=== PATIENT | female | born 1970 | race African-American/Black ===

== ENCOUNTER 2016-11-04 17:55 | Emergency (ER) | payer OTHER ==
[~2016-11-04] VITALS: Ht 172.7 cm; Wt 109.3 kg
[2016-11-04] MEDS ORDERED: FERR325C PO (18:00)
[2016-11-04] MEDS ORDERED: LABE300T PO (18:00)
[2016-11-04] MEDS ORDERED: AMLO10TA2 PO (18:00)
[2016-11-04 19:41] LABS: POTASSIUM ISTAT 3.3 mmol/L (3.5-5.0)
[2016-11-04] MEDS ORDERED: MEDR5TAB PO (20:07)
[2016-11-04] MEDS ORDERED: DOXY50CA PO (20:07)
--- NOTE | 2016-11-04 20:08 | PHYS DOC ---
Past Medical History Past Medical History: Hypertension, Renal Failure, Other Additional Past Medical Histor: OBESITY, PRE-ECLAMPSIA, SCOLIOSIS Past Surgical History: , Tubal ligation Additional Past Surgical Histo: X 4, I&D AXILLA Alcohol Use: None Drug Use: None Adult General Chief Complaint Chief Complaint: VAGINAL BLEEDING HPI HPI Patient is a 46 year old female who presents with 2 weeks of vaginal bleeding, sometimes scant and sometimes heavy with clots; states she has recent fatigue and lightheadedness. States she has had this issue of heavy bleeding in the past , had progesterone shot which improved her symptoms. She would like to progesterone to help with these symptoms. She usually has regular menses, but her last menstrual cycle was 3 months ago. She also notes right axillary swelling and pain with purulent drainage today. States she has a problem with abscesses in her axilla as well as her leg in the past. She denies injury, fever or chills, abdominal pain, diarrhea, dysuria, hematuria, back pain. Review of Systems Review of Systems Constitutional: Denies fever or chills [] Eyes: Denies change in visual acuity, redness, or eye pain [] HENT: Denies nasal congestion or sore throat [] Respiratory: Denies cough or shortness of breath [] Cardiovascular: No additional information not addressed in HPI [] GI: Denies abdominal pain, nausea, vomiting, bloody stools or diarrhea [] : Denies dysuria or hematuria [] Musculoskeletal: Denies back pain or joint pain [] Integument: Denies rash [] Neurologic: Denies headache, focal weakness or sensory changes [] Endocrine: Denies polyuria or polydipsia [] Allergies Allergies Allergies Coded Allergies Type Severity Reaction Last Updated Verified amoxicillin Allergy Severe "MY HEART FLUCTUATES" 11/04/16 Yes Physical Exam Physical Exam Constitutional: Well developed, well nourished, no acute distress, non-toxic appearance. [] HENT: Normocephalic, atraumatic, bilateral external ears normal, oropharynx moist, nose normal. [] Eyes: PERRLA, EOMI. [] Neck: Normal range of motion, supple. [] Cardiovascular:Heart rate regular rhythm [] Lungs & Thorax: Bilateral breath sounds clear to auscultation [] Abdomen: Bowel sounds normal, soft, no tenderness. [] Skin: Warm, dry, no erythema, no rash. [] Back: No tenderness, no CVA tenderness. [] Extremities: ROM intact. Right lower with small area of induration and tenderness with central opening with minimal purulent drainage expressible, no surrounding discoloration fluctuance. [] Neurologic: Alert and oriented X 3, normal motor function, normal sensory function, no focal deficits noted. [] Psychologic: Affect normal, judgement normal, mood normal. [] Current Patient Data Vital Signs Vital Signs Date Time Temp Pulse Resp B/P Pulse Ox O2 Delivery O2 Flow Rate FiO2 11/04/16 20:11 97 16 116/64 97 Room Air 11/04/16 18:00 98.2 98.2 Lab Values Laboratory Tests Test 11/04/16 19:02 11/04/16 19:34 POC Urine HCG, Qualitative Hcg negative (Negative) POC Hemoglobin 9.2g/dL (12-15) L POC Hematocrit 27% (36-40) L POC Sodium 136mmol/L (135-145) POC Potassium 3.3mmol/L (3.5-5.0) L POC Chloride 97mmol/L (98-110) L POC Total CO2 23mmol/L (23-32) Anion Gap 20mmol/L (6-14) H POC Blood Urea Nitrogen 12mg/dL (8-26) POC Creatinine 1.6mg/dL (0.5-1.4) H Glucose Level 112mg/dL (70-99) H POC Ionized Calcium (Sancho) 1.14mmol/L (1.13-1.32) Laboratory Tests 11/04/16 19:34 Course & Med Decision Making Course & Med Decision Making Pertinent Labs and Imaging studies reviewed. (See chart for details) Laboratory evaluation is unremarkable other than mild anemia. Encouraged her to follow-up with a automatic splicing machine operator as well as her primary care doctor for further management of these conditions. Will place on Provera for a few days to help suppress bleeding. Return precautions given. She understands and agrees plan. Dragon Disclaimer Dragon Disclaimer This electronic medical record was generated, in whole or in part, using a voice recognition dictation system. Departure Departure Impression: Primary Impression: Abnormal uterine bleeding Additional Impression: Axillary abscess Disposition: HOME, SELF-CARE Condition: STABLE Referrals: SUELLEN ADAMS MD Patient Instructions: Abnormal Uterine Bleeding Additional Instructions: Take provera as prescribed for abnormal uterine bleeding. Take doxycycline as prescribed for axillary abscess. Follow-up with your primary care doctor and your automatic splicing machine operator within one week. Please call for appointments. Return for any concerns. Scripts Medroxyprogesterone Acetate (Provera)5 Mg Tablet1 Tab PO DAILY #5 TAB Ref 0 Prov:Torie FONTENOT MD 11/04/16 Doxycycline Hyclate 50 Mg Capsule1 Cap PO BID #20 CAP Prov:Torie FONTENOT MD 11/04/16 Problem Qualifiers Torie FONTENOT MD Nov 04, 2016 20:08
[2016-11-04 20:11] VITALS: BP 116/64
== END 2016-11-04 20:11 | disposition home or self-care (01) ==
LOC: ER 17:55
DX: N93.9 Abnormal uterine and vaginal bleeding, unspecified (principal); L02.411 Cutaneous abscess of right axilla; N18.9 Chronic kidney disease, unspecified; I12.9 Hypertensive chronic kidney disease with stage 1 through stage 4 chronic kidney disease, or unspecified chronic kidney disease; D64.9 Anemia, unspecified; M41.9 Scoliosis, unspecified; E66.9 Obesity, unspecified; Z68.36 Body mass index [BMI] 36.0-36.9, adult; Z88.0 Allergy status to penicillin
CPT/HCPCS: 80047; 81025; 84703; 99283

== ENCOUNTER 2018-02-25 12:14 | Emergency (ER) | payer OTHER ==
[~2018-02-25] VITALS: Ht 172.7 cm; Wt 161.9 kg
[~2018-02-25 12:14] MED LIST: AMLO10TA2 PO; DOXY50CA PO; FERR325C PO; LABE300T2 PO; MEDR5TAB PO
[2018-02-25 12:25] VITALS: BP 174/92
--- NOTE | 2018-02-25 12:53 | RAD ---
History: Twisted right knee several days earlier. Comparison: None. Findings: AP, lateral, and oblique views of the right knee. No acute fracture or dislocation is identified. Small joint effusion is suspected. Moderate medial compartment degeneration is seen with marginal osteophyte formation and partial loss of joint space. Mild-moderate lateral and patellofemoral compartment degeneration is seen. Degeneration thought advanced for patient's age. Impression: 1. No acute osseous traumatic injury identified. 2. Suspect joint effusion. 3. 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 Electronically signed by: Anurag Hill MD (02/25/2018 12:50 PM) [place] [id number]
--- NOTE | 2018-02-25 13:02 | PHYS DOC ---
Past Medical History Past Medical History: Hypertension, Renal Failure, Other Additional Past Medical Histor: OBESITY, PRE-ECLAMPSIA, SCOLIOSIS Past Surgical History: , Tubal ligation Additional Past Surgical Histo: X 4, I&D AXILLA Alcohol Use: None Drug Use: None Adult General Chief Complaint Chief Complaint: KNEE INJURY [facility] HPI Patient is a 47 year old female who presents with right knee pain. The patient states that she twisted her knee couple Thursday's ago when she was walking. She states she twisted it again when she was getting out of a motor vehicle. She is able to bear weight on the extremity but states that it is painful. Review of Systems Review of Systems Constitutional: Denies fever or chills [] Respiratory: Denies cough or shortness of breath [] Cardiovascular: No additional information not addressed in HPI [] Musculoskeletal: See history of present illness Integument: Denies rash or skin lesions [] Neurologic: Denies headache, focal weakness or sensory changes [] Endocrine: Denies polyuria or polydipsia [] All other systems were reviewed and found to be within normal limits, except as documented in this note. Allergies Allergies Allergies Coded Allergies Type Severity Reaction Last Updated Verified amoxicillin Allergy Severe "MY HEART FLUCTUATES" 11/04/16 Yes Physical Exam Physical Exam Constitutional: Well developed, well nourished, no acute distress, non-toxic appearance. [] Cardiovascular:Heart rate regular rhythm, no murmur [] Lungs & Thorax: Bilateral breath sounds clear to auscultation [] Skin: Warm, dry, no erythema, no rash. [] Extremities: tenderness to right knee with palpation, no cyanosis, no clubbing, ROM intact, mild edema. [] Neurologic: Alert and oriented X 3, normal motor function, normal sensory function, no focal deficits noted. [] Psychologic: Affect normal, judgement normal, mood normal. [] Current Patient Data Vital Signs Vital Signs Date Time Temp Pulse Resp B/P (MAP) Pulse Ox O2 Delivery O2 Flow Rate FiO2 02/25/18 12:25 98.5 78 20 174/92 (119) 100 Room Air 98.5 EKG EKG [] Radiology/Procedures Radiology/Procedures []Signed PATIENT: DARRYN MOREIRA ACCOUNT: [id number] : 1970 LOCATION: ER AGE: 47 SEX: F EXAM STATUS: REG ER ORD. PHYSICIAN: BILL MCCORD APRN REASON: twisted knee PROCEDURE: KNEE RIGHT 3V History: Twisted right knee several days earlier. Comparison: None. Findings: AP, lateral, and oblique views of the right knee. No acute fracture or dislocation is identified. Small joint effusion is suspected. Moderate medial compartment degeneration is seen with marginal osteophyte formation and partial loss of joint space. Mild-moderate lateral and patellofemoral compartment degeneration is seen. Degeneration thought advanced for patient's age. Impression: 1. No acute osseous traumatic injury identified. 2. Suspect joint effusion. 3. 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 Electronically signed by: Anurag Onofre MD (02/25/2018 12:50 PM) [facility] DICTATED and SIGNED BY: ANURAG ONOFRE MD DATE: 02/25/18 1248 Course & Med Decision Making Course & Med Decision Making Pertinent Labs and Imaging studies reviewed. (See chart for details) []An Max wrap was applied to the extremity. Dragon Disclaimer Dragon Disclaimer This electronic medical record was generated, in whole or in part, using a voice recognition dictation system. Departure Departure Impression: Primary Impression: Knee sprain Disposition: 01 HOME, SELF-CARE Condition: STABLE Referrals: UNKNOWN PCP NAME (PCP) MAIN TREJO MD Patient Instructions: Knee Sprain Additional Instructions: Follow up with orthopedics for further evaluation of your painful knee. RICE the extremity. You may take ibuprofen or Tylenol for pain. BILL MCCORD APRN Feb 25, 2018 13:01
== END 2018-02-25 13:15 | disposition home or self-care (01) ==
LOC: ER 12:14
DX: S83.91XA Sprain of unspecified site of right knee, initial encounter (principal); I10 Essential (primary) hypertension; Z88.1 Allergy status to other antibiotic agents; X50.1XXA Overexertion from prolonged static or awkward postures, initial encounter; Y93.01 Activity, walking, marching and hiking; Y99.8 Other external cause status; Y92.89 Other specified places as the place of occurrence of the external cause
CPT/HCPCS: 73562; 99284

== ENCOUNTER 2018-03-17 12:57 | Emergency (ER) | payer OTHER ==
[~2018-03-17] VITALS: Ht 172.7 cm; Wt 161.9 kg
[2018-03-17] MEDS ORDERED: MECL25TA3 PO (13:33)
--- NOTE | 2018-03-17 13:42 | PHYS DOC ---
Past Medical History Past Medical History: Anemia, Hypertension, Renal Failure, Other Additional Past Medical Histor: OBESITY, PRE-ECLAMPSIA, SCOLIOSIS Past Surgical History: , Tubal ligation Additional Past Surgical Histo: X 4, I&D AXILLA Alcohol Use: None Drug Use: None Adult General Chief Complaint Chief Complaint: DIZZY/LIGHT HEADED HPI HPI Patient is a 47 year old f p/w vertigo onset while getting her hair done, she notes that the care worker got water in her ear on the right and she had room spinning the last 5 minutes it was severe however it did resolve on its own. Currently she is asymptomatic and she is feeling much much better no chest pain she said she's had issues with that here in the past. Review of Systems Review of Systems Constitutional: Denies fever or chills [] Eyes: Denies change in visual acuity, redness, or eye pain [] no chest pain : Denies dysuria or hematuria [] Musculoskeletal: Denies back pain or joint pain [] All other systems were reviewed and found to be within normal limits, except as documented in this note. Current Medications Current Medications Current Medications Medications (Trade) Dose Ordered Sig/Mary Start Time Stop Time Status Last Admin Dose Admin Meclizine HCl (Antivert) 25 mg 1X ONCE 03/17/18 13:45 03/17/18 13:46 DC 03/17/18 13:47 25 MG Allergies Allergies Allergies Coded Allergies Type Severity Reaction Last Updated Verified amoxicillin Allergy Severe "MY HEART FLUCTUATES" 11/04/16 Yes Physical Exam Physical Exam Constitutional: Well developed, well nourished, no acute distress, non-toxic appearance. [] HENT: Normocephalic, atraumatic, bilateral external ears normal, oropharynx moist, no oral exudates, nose normal. []TMs are clear Eyes: PERRLA, EOMI, conjunctiva normal, no discharge. [] Neck: Normal range of motion, no tenderness, supple, no stridor. [] Pulmonary: Normal respiratory effort no increased work of breathing no obvious chest wall trauma Abdomen: Bowel sounds normal, soft, no tenderness, no masses, no pulsatile masses. [] Skin: Warm, dry, no erythema, no rash. [] Back: No tenderness, no CVA tenderness. [] Extremities: No tenderness, no cyanosis, no clubbing, ROM intact, no edema. [] Neurologic: Alert and oriented X 3, normal motor function, normal sensory function, no focal deficits noted. [] fnf and cn's intat. Psychologic: Affect normal, judgement normal, mood normal. [] Current Patient Data Vital Signs Vital Signs Date Time Temp Pulse Resp B/P (MAP) Pulse Ox O2 Delivery O2 Flow Rate FiO2 03/17/18 14:15 74 21 97 03/17/18 13:15 98.3 149/92 (111) Room Air 98.3 EKG EKG [] Radiology/Procedures Radiology/Procedures [] Course & Med Decision Making Course & Med Decision Making Pertinent Labs and Imaging studies reviewed. (See chart for details) [][age] yo female with apparent peripheral vertigo. EKG interpreted by me shows a normal sinus rhythm with nonspecific changes laterally no acute ST elevation no STEMI Patient's symptoms resolved on arrival to the emergency room and happen after she got some water in her ear she did come here by ambulance her EKG was fine. Patient's neuro intact with no symptoms at this time she was discharged in stable condition Dragon Disclaimer Dragon Disclaimer This electronic medical record was generated, in whole or in part, using a voice recognition dictation system. Departure Departure Impression: Primary Impression: Vertigo Disposition: 01 HOME, SELF-CARE Condition: IMPROVED Patient Instructions: Vertigo, [id number] Scripts Meclizine Hcl (MECLIZINE HCL) 25 Mg Tablet 25 MG PO PRN TID PRN for DIZZINESS, #30 dizziness Prov: ROSA FREIRE MD 03/17/18 ROSA FREIRE MD Mar 17, 2018 13:42
[2018-03-17] MEDS: MECLIZINE HCL 12.5 MG TABLET. PO ONE (13:47)
[2018-03-17 14:15] VITALS: BP 128/83
--- NOTE | 2018-03-17 14:47 | EKG ---
[facility] [address] [place] [address] Test Date: 2018-03-17 Test Time: 13:46:21 Pat Name: DARRYN MOREIRA Department: Room: Gender: F Baggage Screener: JORY : 1970 Requested By: ROSA FREIRE Order Number: [id number] Reading MD: Hoang Veloz Measurements Intervals [place] Rate: 83 P: 32 NE: 166 QRS: 44 QRSD: 86 T: 26 QT: 358 QTc: 426 Interpretive Statements SINUS RHYTHM Electronically Signed On 03-19-2018 13:04:54 CDT by Hoang Veloz
== END 2018-03-17 14:31 | disposition home or self-care (01) ==
LOC: ER 12:57
DX: R42 Dizziness and giddiness (principal); I12.9 Hypertensive chronic kidney disease with stage 1 through stage 4 chronic kidney disease, or unspecified chronic kidney disease; N18.9 Chronic kidney disease, unspecified; Z88.1 Allergy status to other antibiotic agents
CPT/HCPCS: 93005; 99283; J8597

== ENCOUNTER 2018-05-15 14:10 | Emergency (ER) | payer OTHER ==
[~2018-05-15] VITALS: Ht 172.7 cm; Wt 154.2 kg
[~2018-05-15 14:10] MED LIST changes: -AMLO10TA2 PO; +AMLO10TA6 PO; +MECL25TA3 PO
[2018-05-15 14:40] VITALS: BP 169/83
[2018-05-15] MEDS ORDERED: CEPH500T PO (14:47)
--- NOTE | 2018-05-15 15:33 | PHYS DOC ---
Past Medical History Past Medical History: Anemia, Hypertension, Renal Failure, Other Additional Past Medical Histor: OBESITY, PRE-ECLAMPSIA, SCOLIOSIS Past Surgical History: , Tubal ligation Additional Past Surgical Histo: X 4, I&D AXILLA Alcohol Use: None Drug Use: None Adult General Chief Complaint Chief Complaint: ABSCESS HPI HPI Patient is a 47 year old female who presents with possible abscess. Patient states she has a prior history of multiple abscesses, many of which have required incision and drainage. Today, she presents to the ER complaining of abscess under the left breast, in the left axilla, and over the mid lower back. Symptoms came up in the last 24 hours. She has not had a fever or chills. No additional complaints. Review of Systems Review of Systems Constitutional: Denies fever Respiratory: Denies cough Cardiovascular: No additional information not addressed in HPI GI: Denies abdominal pain Musculoskeletal: Denies back pain Integument: as above Neurologic: Denies headache All other systems were reviewed and found to be within normal limits, except as documented in this note. Allergies Allergies Allergies Coded Allergies Type Severity Reaction Last Updated Verified amoxicillin Allergy Severe "MY HEART FLUCTUATES" 11/04/16 Yes Physical Exam Physical Exam Constitutional: Well developed, well nourished, no acute distress, non-toxic appearance HENT: Normocephalic, atraumatic, bilateral external ears normal, oropharynx moist Eyes: PERRLA Neck: Normal range of motion Lungs & Thorax: Bilateral breath sounds clear to auscultation Abdomen: Bowel sounds normal, soft Skin: Warm, dry, small pustule beneath right breast that is draining. Additional in the right axilla and on the back. Back: No tenderness Extremities: No tenderness Neurologic: Alert and oriented X 3 Psychologic: Affect normal Current Patient Data Vital Signs Vital Signs Date Time Temp Pulse Resp B/P (MAP) Pulse Ox O2 Delivery O2 Flow Rate FiO2 05/15/18 14:40 98.1 89 18 169/83 (111) 100 Room Air 98.1 EKG EKG [] Radiology/Procedures Radiology/Procedures [] Course & Med Decision Making Course & Med Decision Making Pertinent Labs and Imaging studies reviewed. (See chart for details) Patient is evaluated for minor abscesses. The axilla appears more like hidradenitis over infectious abscess. The other 2 abscesses she is being evaluated for are not fluctuant enough to require incision and drainage. The patient is primarily requesting refill of Keflex which she states in the past has helped relieve her symptoms. She is discharged home with Keflex. She is advised to follow-up with her primary care doctor or return to the ER for new or worsening symptoms. Dragon Disclaimer Dragon Disclaimer This electronic medical record was generated, in whole or in part, using a voice recognition dictation system. Departure Departure Impression: Primary Impression: Axillary abscess Disposition: HOME, SELF-CARE Condition: GOOD Referrals: UNKNOWN PCP NAME (PCP) Patient Instructions: Abscess, Hidradenitis Suppurativa, Sweat Gland Abscess Scripts Cephalexin (CEPHALEXIN) 500 Mg Tablet 1 TAB PO TID, #30 TAB Prov: DENEEN WRIGHT DO 05/15/18 DENEEN WRIGHT DO May 15, 2018 15:33
== END 2018-05-15 14:55 | disposition home or self-care (01) ==
LOC: ER 14:10
DX: L02.411 Cutaneous abscess of right axilla (principal); L02.212 Cutaneous abscess of back [any part, except buttock and flank]; N61.1 Abscess of the breast and nipple; I12.9 Hypertensive chronic kidney disease with stage 1 through stage 4 chronic kidney disease, or unspecified chronic kidney disease; N18.9 Chronic kidney disease, unspecified; Z88.1 Allergy status to other antibiotic agents
CPT/HCPCS: 99283

== ENCOUNTER 2018-08-12 06:43 | Emergency (ER) | payer OTHER ==
[~2018-08-12] VITALS: Ht 172.7 cm; Wt 158.8 kg
[~2018-08-12 06:43] MED LIST changes: +CEPH500T PO
[2018-08-12 06:45] VITALS: BP 135/74
[2018-08-12] MEDS ORDERED: IBUPROFEN 600 MG TABLET. PO ONE (07:00)
--- NOTE | 2018-08-12 07:05 | PHYS DOC ---
Past Medical History Past Medical History: Anemia, Hypertension, Renal Failure, Other Additional Past Medical Histor: OBESITY, PRE-ECLAMPSIA, SCOLIOSIS Past Surgical History: , Tubal ligation Additional Past Surgical Histo: X 4, I&D AXILLA Alcohol Use: None Drug Use: None Adult General Chief Complaint Chief Complaint: LOWER EXT PAIN HPI HPI Patient is a 47 year old AAF who presents with R great toe pain. Started yesterday. She did not about a week ago she might have fallen and hurt her foot. she says that her pain started yesterday and it hurts a lot to move her toe. She thought she may have gout. She denies fevers, vomiting, chest pain, shortness of breath. Review of Systems Review of Systems Constitutional: Denies fever or chills Eyes: Denies change in visual acuity, redness, or eye pain HENT: Denies nasal congestion or sore throat Respiratory: Denies cough or shortness of breath Cardiovascular: No additional information not addressed in HPI GI: Denies abdominal pain, nausea, vomiting, bloody stools or diarrhea : Denies dysuria or hematuria Musculoskeletal: Denies back pain or joint pain Integument: Denies rash or skin lesions Neurologic: Denies headache, focal weakness or sensory changes Endocrine: Denies polyuria or polydipsia All other systems were reviewed and found to be within normal limits, except as documented in this note. Current Medications Current Medications Current Medications Medications (Trade) Dose Ordered Sig/Mary Start Time Stop Time Status Last Admin Dose Admin Ibuprofen (Motrin) 600 mg 1X ONCE 08/12/18 07:00 08/12/18 07:08 DC 08/12/18 07:17 600 MG Allergies Allergies Allergies Coded Allergies Type Severity Reaction Last Updated Verified amoxicillin Allergy Severe "MY HEART FLUCTUATES" 11/04/16 Yes Physical Exam Physical Exam Constitutional: Well developed, well nourished, no acute distress, non-toxic appearance. HENT: Normocephalic, atraumatic, bilateral external ears normal, oropharynx moist, no oral exudates, nose normal. Eyes: PERRLA, EOMI, conjunctiva normal, no discharge. Neck: Normal range of motion, no tenderness, supple, no stridor. Cardiovascular:Heart rate regular rhythm, no murmur Lungs & Thorax: Bilateral breath sounds clear to auscultation Abdomen: Bowel sounds normal, soft, no tenderness, no masses, no pulsatile masses. Skin: Warm, dry, no erythema, no rash. Back: No tenderness, no CVA tenderness. Extremities: No tenderness, no cyanosis, no clubbing, ROM intact, no edema. R toe with warmth, minimal swelling, no erythema or induration. Pt can move the toe but this causes pain. Neurologic: Alert and oriented X 3, normal motor function, normal sensory function, no focal deficits noted. Psychologic: Affect normal, judgement normal, mood normal. Current Patient Data Vital Signs Vital Signs Date Time Temp Pulse Resp B/P (MAP) Pulse Ox O2 Delivery O2 Flow Rate FiO2 08/12/18 06:45 98.5 85 20 135/74 (94) 97 Room Air 98.5 Radiology/Procedures Radiology/Procedures R foot xray: neg for fx by my read Course & Med Decision Making Course & Med Decision Making Pertinent Labs and Imaging studies reviewed. (See chart for details) Pt presents for R great toe pain. She is obese and likely has gout. Tx with NSAIDs. Follow up with PMD for preventative tx. I provided pt with educational materials re gout. Xray neg for fx. Post op shoe provided. Discussed return precautions. Dragon Disclaimer Dragon Disclaimer This electronic medical record was generated, in whole or in part, using a voice recognition dictation system. Departure Departure Impression: Primary Impression: Gout Disposition: 01 HOME, SELF-CARE Condition: IMPROVED Referrals: UNKNOWN PCP NAME (PCP) Patient Instructions: Gout Scripts Sulfamethoxazole/Trimethoprim (BACTRIM DS TABLET) 1 Each Tablet 1 TAB PO BID PRN for INFLAMMATION for 10 Days, #20 TAB Prov: SHRUTHI SIMS MD 08/12/18 Ibuprofen (IBUPROFEN) 600 Mg Tablet 600 MG PO PRN Q6HRS PRN for PAIN, #20 TAB take with food or milk Prov: SHRUTHI SIMS MD 08/12/18 Sulfamethoxazole/Trimethoprim (BACTRIM 400-80 MG TABLET) 1 Each Tablet 1 TAB PO BID PRN for INFLAMMATION for 7 Days, #14 TAB 0 Refills Prov: SHRUTHI SIMS MD 08/12/18 Ibuprofen (IBUPROFEN) 600 Mg Tablet 600 MG PO PRN Q6HRS PRN for INFLAMMATION for 7 Days, #30 TAB Prov: SHRUTHI SIMS MD 08/12/18 SHRUTHI SIMS MD Aug 12, 2018 07:05
--- NOTE | 2018-08-12 07:42 | RAD ---
Right foot, 3 views, 08/12/2018: HISTORY: Pain, injury There is a mild hallux valgus deformity with mild degenerative change at the first MTP joint. No acute fracture or dislocation is identified. There is mild soft tissue swelling about the forefoot. IMPRESSION: No acute bony abnormality is detected. Electronically signed by: Perry Cosby MD (08/12/2018 7:38 AM) [facility]
[2018-08-12] MEDS ORDERED: IBUP-1007 PO ×2 (07:44→07:50)
[2018-08-12] MEDS ORDERED: SULF1TAB23 PO (07:44)
[2018-08-12] MEDS ORDERED: SULF1TAB24 PO (07:50)
== END 2018-08-12 07:56 | disposition home or self-care (01) ==
LOC: ER 06:43
DX: M10.9 Gout, unspecified (principal); M79.674 Pain in right toe(s); I10 Essential (primary) hypertension; D64.9 Anemia, unspecified; E66.9 Obesity, unspecified; Z68.43 Body mass index [BMI] 50.0-59.9, adult; Z98.890 Other specified postprocedural states; Z98.51 Tubal ligation status; Z88.1 Allergy status to other antibiotic agents
CPT/HCPCS: 73630; 99284